=== PATIENT | female | born 1995 | race Caucasian/White ===

== ENCOUNTER 2025-04-01 21:35 | Emergency (ER) | payer OTHER ==
[~2025-04-01] VITALS: Ht 175.3 cm; Wt 77.6 kg
[2025-04-01 21:43] VITALS: O2SAT 99
[2025-04-01 21:50] VITALS: TEMP 36.7
[2025-04-01 22:16] LABS: CLARITY URINE CLEAR (CLEAR); COLOR URINE YELLOW (YELLOW); GLUCOSE URINE NEGATIVE (NEGATIVE); KETONES URINE NEGATIVE (NEGATIVE); LEUKOCYTE ESTERASE URINE 2+ (NEGATIVE); NITRITE URINE NEGATIVE (NEGATIVE); OCCULT BLOOD URINE NEGATIVE (NEGATIVE); PH URINE 8.5 (4.5-8.0); PROTEIN URINE NEGATIVE (NEGATIVE); SPECIFIC GRAVITY URINE 1.014 (1.005-1.030); UROBILINOGEN URINE 0.2 E.U./dL (0.2-1.0)
[2025-04-01 22:24] LABS: BASOPHILS % 1.3 % (0.0-2.0); EOSINOPHILS % 8.8 % (0.0-5.0); HEMATOCRIT. 42.7 % (36.0-48.0); HEMOGLOBIN. 14.6 g/dL (12.0-16.0); LYMPHOCYTES % 18.1 % (20.0-50.0); MEAN PLATELET VOLUME 7.5 fl (7.4-10.4); MONOCYTES % 6.8 % (2.0-8.0); NEUTROPHILS % 65.0 % (40.0-76.0); PLATELET 255 x1000/uL (130-400); RED BLOOD CELL COUNT 4.75 mill/uL (4.2-5.4); RED CELL DISTRIBUTION WIDTH 13.2 % (11.6-14.6)
[2025-04-01] MEDS: SODIUM CHLORIDE 0.9% 1,000 ML IV ONE (22:31)
[2025-04-01] MEDS: KETOROLAC 15MG/ML VIAL IV ONE (22:31)
[2025-04-01] MEDS: ONDANSETRON HCL 4MG/2ML INJ IV ONE (22:36)
[2025-04-01 22:39] LABS: BACTERIA URINE 1+; RBC URINE 0-2 /hpf (0-2); SQUAMOUS EPITHELIAL CELL URINE 1+ /lpf (RARE/1+)
[2025-04-01 22:42] LABS: HCG SCREEN NEGATIVE
[2025-04-01 22:46] LABS: CREATININE 1.0 mg/dL (0.6-1.0); UREA NITROGEN BLOOD 16 mg/dL (9-23)
[2025-04-01 22:48] LABS: ASPARTATE AMINOTRANSFERASE 26 IU/L (<34); BILIRUBIN DIRECT 0.1 mg/dL (<=3.0)
[2025-04-01 22:49] LABS: BILIRUBIN TOTAL 0.6 mg/dL (0.1-1.0); PROTEIN TOTAL 7.3 g/dL (6.0-8.3)
[2025-04-01] MEDS: IOHEXOL-350 100 ML BOTTLE ONE (23:41)
[2025-04-01] MEDS: POTASSIUM CHLORIDE 20MEQ/PACKET PO NR (23:44)
[2025-04-02] MEDS ORDERED: CEPH500C2 MT (00:25)
[2025-04-02] MEDS ORDERED: ACET-2708 MT (00:25)
[2025-04-02] MEDS ORDERED: ONDA4TAB50 MT (00:25)
[2025-04-02 00:37] VITALS: BP 115/55; PULSE 78; RESP 12; O2SAT 100
[2025-04-02] MEDS ORDERED: IOHEXOL-300 100 ML BOTTLE ONE (01:04)
== END 2025-04-02 00:50 | disposition home or self-care (01) ==
LOC: ER 21:35
DX: R10.30 Lower abdominal pain, unspecified (principal); Z98.890 Other specified postprocedural states
CPT/HCPCS: 99285; 74177; 96374; 96361; 80076; 80048; 81003; 84703; 83690; 85025; 36415; J1885; Q9967 ×2; J7030